=== PATIENT | female | born 1990 | race Caucasian/White ===

== ENCOUNTER → 2018-02-23 | Emergency (ER) | payer OTHER ==
[~2018-02-23] VITALS: Ht 165.1 cm; Wt 113.4 kg
[~2018-02-23] MED LIST: FOLIC ACID0.4 MG; PRENATAL FORMU1 EACH PO
== END | disposition home or self-care (01) ==
LOC: ER 20:36
DX: O20.0 Threatened abortion (principal); Z34.01 Encounter for supervision of normal first pregnancy, first trimester

== ENCOUNTER 2018-09-17 13:47 | Inpatient (IN) | payer OTHER ==
[~2018-09-17] VITALS: Ht 165.1 cm; Wt 2.7 kg
== END 2018-09-20 16:02 | DRG 786 ==
LOC: LDR 13:47 → OB/GYN 09-18 18:42 → LDR 09-18 20:35 → OB/GYN 09-19 11:37
PROVIDERS: Obstetrics & Gynecology
PROC: 4A1HXCZ Monitoring of Products of Conception, Cardiac Rate, External Approach (ICD-10-PCS; 2018-09-17)
PROC: 4A033R1 Measurement of Arterial Saturation, Peripheral, Percutaneous Approach (ICD-10-PCS; 2018-09-18)
PROC: 10D00Z1 Extraction of Products of Conception, Low, Open Approach (ICD-10-PCS; principal; 2018-09-18 17:00)
DX: O33.8 Maternal care for disproportion of other origin (principal); O14.13 Severe pre-eclampsia, third trimester; Z3A.37 37 weeks gestation of pregnancy; Z37.0 Single live birth